=== PATIENT | female | born 2000 | race Two or more races ===

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

== ENCOUNTER 2019-01-21 12:22 | Emergency (ER) | payer OTHER, SELFPAY ==
[~2019-01-21] VITALS: Ht 162.6 cm; Wt 59.0 kg
[~2019-01-21 12:22] MED LIST changes: +HYDR-3164 PO; -HYDR-971 PO; +NAPR-683 PO; -NAPR500T PO; +ONDA4TAB10 SL
[2019-01-21 12:58] LABS: BILIRUBIN,URINE NEGATIVE (NEG); CLARITY,URINE CLEAR; COLOR,URINE YELLOW; NITRITE,URINE NEGATIVE (NEG); PROTEIN,URINE NEGATIVE (NEG-TRACE)
--- NOTE | 2019-01-21 13:09 | PHYS DOC ---
Past Medical History Past Medical History: Other Additional Past Medical Histor: miscarriage Past Surgical History: Other Additional Past Surgical Histo: intestinal perf, D&C after miscarriage Alcohol Use: None Drug Use: None Adult General Chief Complaint Chief Complaint: ABDOMINAL PAIN HPI HPI 18-year-old female presents to ER via POV for complaints of right-sided abdomina l pain which started on Saturday. She reports she has had no bowel movement since Saturday. She denies nausea or vomiting. LMP 2 weeks ago and she is on control. Patient denies fever, urinary symptoms, or vaginal symptoms. Patient states she has increased pain with walking. She denies any recent injury. Patient last ate at 8 AM this morning denies nausea or increased pain. Review of Systems Review of Systems Constitutional: Denies fever or chills [] Eyes: Denies change in visual acuity, redness, or eye pain [] HENT: Denies nasal congestion or sore throat [] Respiratory: Denies cough or shortness of breath [] Cardiovascular: No additional information not addressed in HPI [] GI: Denies nausea, vomiting, bloody stools or diarrhea. Reports rt lower abd pain : Denies dysuria or hematuria. Denies abnorm. vaginal bleeding/discharge Musculoskeletal: Denies back pain or joint pain [] Integument: Denies rash or skin lesions [] Neurologic: Denies headache, focal weakness or sensory changes [] All other systems were reviewed and found to be within normal limits, except as documented in this note. Current Medications Current Medications Current Medications Medications (Trade) Dose Ordered Sig/Memo Start Time Stop Time Status Last Admin Dose Admin Info (CONTRAST GIVEN -- Rx MONITORING) 1 each PRN DAILY PRN 01/21/19 16:30 01/21/19 17:21 DC Iohexol (Omnipaque 300 Mg/ml) 75 ml 1X ONCE 01/21/19 16:30 01/21/19 16:31 DC 01/21/19 16:36 75 ML Allergies Allergies Allergies Coded Allergies Type Severity Reaction Last Updated Verified No Known Drug Allergies 12/20/15 No Physical Exam Physical Exam Constitutional: Well developed, well nourished, no acute distress, non-toxic appearance. [] HENT: Normocephalic, atraumatic, oropharynx moist, no oral exudates, nose normal. [] Eyes: Pupils equal, conjunctiva normal, no discharge. [] Neck: Normal range of motion, no tenderness, supple, no stridor. [] Cardiovascular:Heart rate regular rhythm, no murmur [] Lungs & Thorax: Bilateral breath sounds clear to auscultation. Resp. equal/ nonlabored Abdomen: Bowel sounds normal, soft-no distention or rigidity, tender rt lower abd- rebound tenderness, no masses, no pulsatile masses. Mid umbilical healed surgical scar- no tenderness at site or swelling/palp. mass[] Skin: Warm, dry, no erythema, no rash. [] Back: No tenderness, no CVA tenderness. [] Extremities: No tenderness, no cyanosis, no clubbing, ROM intact, no edema. [] Neurologic: Alert and oriented X 3, normal motor function, normal sensory function, no focal deficits noted. [] Psychologic: Affect normal, judgement normal, mood normal. [] Current Patient Data Vital Signs Vital Signs Date Time Temp Pulse Resp B/P (MAP) Pulse Ox O2 Delivery O2 Flow Rate FiO2 01/21/19 16:39 74 16 107/58 (74) 100 Room Air 01/21/19 12:25 98.2 98.2 Lab Values Laboratory Tests Test 01/21/19 12:40 01/21/19 13:30 Urine Collection Type Unknown Urine Color Yellow Urine Clarity Clear Urine pH 7.0 Urine Specific [place] 1.020 Urine Protein Negative mg/dL (NEG-TRACE) Urine Glucose (UA) Negative mg/dL (NEG) Urine Ketones (Stick) Negative mg/dL (NEG) Urine Blood Negative (NEG) Urine Nitrite Negative (NEG) Urine Bilirubin Negative (NEG) Urine Urobilinogen Dipstick 1.0 mg/dL (0.2 mg/dL) Urine Leukocyte Esterase Negative (NEG) Urine RBC Occ /HPF (0-2) Urine WBC Occ /HPF (0-4) Urine Squamous Epithelial Cells Few /LPF Urine Bacteria Few /HPF (0-FEW) Urine Test Negative (NEG) White Blood Count 8.7 x10^3/uL (4.0-11.0) Red Blood Count 3.96 x10^6/uL (3.50-5.40) Hemoglobin 12.4 g/dL (12.0-15.5) Hematocrit 37.0 % (36.0-47.0) Mean Corpuscular Volume 93 fL (79-100) Mean Corpuscular Hemoglobin 31 pg (25-35) Mean Corpuscular Hemoglobin Concent 34 g/dL (31-37) Red Cell Distribution Width 12.6 % (11.5-14.5) Platelet Count 282 x10^3/uL (140-400) Neutrophils (%) (Auto) 69 % (31-73) Lymphocytes (%) (Auto) 19 % (24-48) L Monocytes (%) (Auto) 10 % (0-9) H Eosinophils (%) (Auto) 2 % (0-3) Basophils (%) (Auto) 0 % (0-3) Neutrophils # (Auto) 6.0 x10^3uL (1.8-7.7) Lymphocytes # (Auto) 1.6 x10^3/uL (1.0-4.8) Monocytes # (Auto) 0.9 x10^3/uL (0.0-1.1) Eosinophils # (Auto) 0.2 x10^3/uL (0.0-0.7) Basophils # (Auto) 0.0 x10^3/uL (0.0-0.2) Sodium Level 140 mmol/L (136-145) Potassium Level 3.8 mmol/L (3.5-5.1) Chloride Level 105 mmol/L (98-107) Carbon Dioxide Level 26 mmol/L (21-32) Anion Gap 9 (6-14) Blood Urea Nitrogen 10 mg/dL (7-20) Creatinine 0.5 mg/dL (0.6-1.0) L Estimated GFR (Cockcroft-Gault) 158.9 BUN/Creatinine Ratio 20 (6-20) Glucose Level 83 mg/dL (70-99) Calcium Level 9.2 mg/dL (8.5-10.1) Total Bilirubin 0.6 mg/dL (0.2-1.0) Aspartate Amino Transferase (AST) 15 U/L (15-37) Alanine Aminotransferase (ALT) 20 U/L (14-59) Alkaline Phosphatase 55 U/L (46-116) Total Protein 7.3 g/dL (6.4-8.2) Albumin 3.4 g/dL (3.4-5.0) Albumin/Globulin Ratio 0.9 (1.0-1.7) L Lipase 81 U/L (73-393) Laboratory Tests 01/21/19 13:30 Laboratory Tests 01/21/19 13:30 EKG EKG [] Radiology/Procedures Radiology/Procedures PROCEDURE: RIGHT LOWER QUANDRANT RIGHT LOWER QUANDRANT Clinical Indication: Right lower quadrant pain. Comparison: None. TECHNIQUE: Real-time ultrasound imaging of the right lower quadrant of the abdomen is performed. Findings: Normal blood flow in the right ovary. There is a right ovary functional cyst measuring up to 3.6 cm. The appendix is not identified in the right lower quadrant of the abdomen. Peristalsing bowel is seen. IMPRESSION: 1. The appendix is not identified in the right lower quadrant. 2. Small right ovary functional cyst. Electronically signed by: Jeronimo Currie MD (01/21/2019 3:18 PM) [id number] DICTATED and SIGNED BY: JERONIMO CURRIE MD DATE: 01/21/19 1518 PROCEDURE: CT ABD PELV W/ IV CONTRST ONLY EXAM: Abdomen and pelvis CT with intravenous contrast. HISTORY: Right lower quadrant pain. TECHNIQUE: Computed tomographic images of the abdomen and pelvis were obtained following the administration of 75 cc Omnipaque 300 intravenous contrast. Multiplanar reformatting was performed. *One or more of the following individualized dose reduction techniques were utilized for this examination: 1. Automated exposure control. 2. Adjustment of the mA and/or kV according to patient size. 3. Use of iterative reconstruction technique. COMPARISON: None. FINDINGS: Evaluation of the lower thorax demonstrates no infiltrate or pleural effusion. No suspicious hepatic lesion is seen. The gallbladder, pancreas, spleen, adrenal glands and left kidney are unremarkable. There is a 4 mm hyperdense lesion within the superior lateral right kidney, likely a small cortical cyst. There is no evidence of appendicitis. There is no evidence of bowel obstruction or abnormal bowel wall thickening. There is a surgical anastomosis involving the proximal colon. There is a 3.7 cm right ovarian cyst. There may be mild right hydrosalpinx. There is a 1.6 cm left ovarian follicle/follicular cyst with adjacent smaller follicles. The uterus and bladder are unremarkable. There is no lymphadenopathy. There is no suspicious osseous lesion. IMPRESSION: 1. 3.7 cm right ovarian cyst. There may be right hydrosalpinx. There is also a 1.6 cm left ovarian follicle/follicular cyst. 2. No evidence of appendicitis. 3. Suspected tiny right renal cyst. Electronically signed by: Kika Hauser MD (01/21/2019 4:49 PM) [facility] DICTATED and SIGNED BY: KIKA HAUSER MD DATE: 01/21/19 9460 Course & Med Decision Making Course & Med Decision Making Pertinent Labs and Imaging studies reviewed. (See chart for details) 1410: Discussed test results with patient and her boyfriend. Labs unremarkable. Reexamination of patient and she continues to have right lower quadrant pain on palpation with rebound tenderness. Discussed obtaining an ultrasound and patient is agreeable with this plan. Patient was offered dose of pain medication however is preferring no medications as pain is tolerable. Discussed possible muscle strain vs other abd issue such as appy with pt's pain location. 1530: Discussed ultrasound with patient and her boyfriend unfortunately appendix was not visualized on ultrasound. Patient does continue to have right lower quadrant pain and so discussion had with her and her boyfriend regarding obtaining CT abd/pelvis for further r/o appy- she is agreeable. CT results discussed with pt w/boyfriend at bedside with rt 3.7 cm ovarian cyst/1.6 cm lt cyst. No reported free fld/obstruction and appendix NL. Discussed pelvic exam for further eval. Pt is denying vaginal sxs/concerns for STDs and had neg. UCG. She is wanting discharged from ER w/plans to f/u outpt if sxs per sist- will provide [employer]ICE referral info on discharge paperwork. She has remained nontoxic in appearance and in no distress during this discussion. Patient was offered pain medication however reported pain was tolerable while in the ER. Education provided on signs and symptoms to return to ER. Discharge instructions were discussed. She advised on [id number] Tylenol and/or ibuprofen when necessary. Dragon Disclaimer Dragon Disclaimer This electronic medical record was generated, in whole or in part, using a voice recognition dictation system. Departure Departure Impression: Primary Impression: Abdominal pain Additional Impression: Ovarian cyst Disposition: HOME, SELF-CARE Condition: STABLE Referrals: NO PCP (PCP) LUISA IQBAL MD Patient Instructions: Abdominal Pain, Ovarian Cyst Additional Instructions: Tylenol and/or ibuprofen as directed on container as needed for pain. Follow-up with your [employer] WORK[employer]PRENTICE for reevaluation and further care. Problem Qualifiers ANDRA FORTE APRN January 21, 2019 13:09
[2019-01-21 13:12] LABS: BACTERIA,URINE FEW /HPF (0-FEW); RBC,URINE OCC /HPF (0-2); SQUAMOUS EPITHELIAL CELL,UR FEW /LPF; WBC,URINE OCC /HPF (0-4)
[2019-01-21 13:15] LABS: U PREG PATIENT NEGATIVE (NEG)
[2019-01-21 13:44] LABS: BASO % 0 % (0-3); EOS # 0.2 x10^3/uL (0.0-0.7); EOS % 2 % (0-3); HEMOGLOBIN 12.4 g/dL (12.0-15.5); LYMPH # 1.6 x10^3/uL (1.0-4.8); LYMPH % 19 % (24-48); MEAN CORPUSCULAR HEMOGLOBIN 31 pg (25-35); MEAN CORPUSCULAR HGB CONC 34 g/dL (31-37); MEAN CORPUSCULAR VOLUME 93 fL (79-100); MONO # 0.9 x10^3/uL (0.0-1.1); MONO % 10 % (0-9); NEUT % 69 % (31-73); PLATELET COUNT 282 x10^3/uL (140-400); RED BLOOD COUNT 3.96 x10^6/uL (3.50-5.40); RED CELL DISTRIBUTION WIDTH 12.6 % (11.5-14.5); WHITE BLOOD COUNT 8.7 x10^3/uL (4.0-11.0)
[2019-01-21 14:01] LABS: CALCIUM 9.2 mg/dL (8.5-10.1); CREATININE 0.5 mg/dL (0.6-1.0); GFR 158.9; POTASSIUM 3.8 mmol/L (3.5-5.1)
[2019-01-21 14:12] LABS: ALBUMIN 3.4 g/dL (3.4-5.0); ALBUMIN/GLOBULIN RATIO 0.9 (1.0-1.7); TOTAL BILIRUBIN 0.6 mg/dL (0.2-1.0); TOTAL PROTEIN 7.3 g/dL (6.4-8.2)
--- NOTE | 2019-01-21 15:21 | RAD ---
RIGHT LOWER QUANDRANT Clinical Indication: Right lower quadrant pain. Comparison: None. TECHNIQUE: Real-time ultrasound imaging of the right lower quadrant of the abdomen is performed. Findings: Normal blood flow in the right ovary. There is a right ovary functional cyst measuring up to 3.6 cm. The appendix is not identified in the right lower quadrant of the abdomen. Peristalsing bowel is seen. IMPRESSION: 1. The appendix is not identified in the right lower quadrant. 2. Small right ovary functional cyst. Electronically signed by: Jeronimo Currie MD (01/21/2019 3:18 PM) [id number]
[2019-01-21] MEDS ORDERED: CONTRAST GIVEN. MC PRN (16:30)
[2019-01-21] MEDS: IOHEXOL 300 MG/ML 100ML VIAL. IV ONE (16:36)
[2019-01-21 16:39] VITALS: BP 107/58
--- NOTE | 2019-01-21 16:51 | RAD ---
EXAM: Abdomen and pelvis CT with intravenous contrast. HISTORY: Right lower quadrant pain. TECHNIQUE: Computed tomographic images of the abdomen and pelvis were obtained following the administration of 75 cc Omnipaque 300 intravenous contrast. Multiplanar reformatting was performed. *One or more of the following individualized dose reduction techniques were utilized for this examination: 1. Automated exposure control. 2. Adjustment of the mA and/or kV according to patient size. 3. Use of iterative reconstruction technique. COMPARISON: None. FINDINGS: Evaluation of the lower thorax demonstrates no infiltrate or pleural effusion. No suspicious hepatic lesion is seen. The gallbladder, pancreas, spleen, adrenal glands and left kidney are unremarkable. There is a 4 mm hyperdense lesion within the superior lateral right kidney, likely a small cortical cyst. There is no evidence of appendicitis. There is no evidence of bowel obstruction or abnormal bowel wall thickening. There is a surgical anastomosis involving the proximal colon. There is a 3.7 cm right ovarian cyst. There may be mild right hydrosalpinx. There is a 1.6 cm left ovarian follicle/follicular cyst with adjacent smaller follicles. The uterus and bladder are unremarkable. There is no lymphadenopathy. There is no suspicious osseous lesion. IMPRESSION: 1. 3.7 cm right ovarian cyst. There may be right hydrosalpinx. There is also a 1.6 cm left ovarian follicle/follicular cyst. 2. No evidence of appendicitis. 3. Suspected tiny right renal cyst. Electronically signed by: Kika Miranda MD (01/21/2019 4:49 PM) [id number]
== END 2019-01-21 17:20 | disposition home or self-care (01) ==
LOC: ER 12:22
DX: N83.201 Unspecified ovarian cyst, right side (principal)
CPT/HCPCS: 36415; 74177; 80053; 81001; 81025; 83690; 85025; 93975; 99285; Q9967